=== PATIENT | female | born 1980 | race Caucasian/White ===

== ENCOUNTER 2017-08-24 01:04 | Emergency (ER) | END 2017-08-24 06:43 | disposition home or self-care (01) ==

== ENCOUNTER 2018-05-05 19:56 | Emergency (ER) | END 2018-05-05 21:40 | disposition home or self-care (01) ==

== ENCOUNTER 2018-08-19 15:37 | Emergency (ER) | payer OTHER ==
[~2018-08-19] VITALS: Ht 167.6 cm; Wt 68.9 kg
[~2018-08-19 15:37] MED LIST: ACET-2047 PO; ACET500C5 PO; BENZ-6 PO; CLIN300C10 PO; D-ME473S2 PO; IBUP-1542 PO; SODI104S2 NASAL
[2018-08-19 15:45] VITALS: BP 108/59; PULSE 81; RESP 20; Ht 167.6 cm; Wt 68.9 kg
[2018-08-19] MEDS ORDERED: AZIT250T PO (16:05)
[2018-08-19] MEDS ORDERED: IBUP-1561 PO (16:07)
--- NOTE | 2018-08-19 16:13 | ERD ---
ER Documentation Chief Complaint Chief Complaint Complains of a sore throat x 2 days HPI 38-year-old female presents with history sore throat since Monday. States that it hurts to swallow and talk. States she has been having fevers and mild cough. Denies trismus, drooling. Has been taking Tylenol pain. Past medical history of migraines. Allergic to penicillin. Denies medications. Hernia surgery. Denies drinking, smoking, drug use. ROS All systems reviewed and are negative except as per history of present illness. Medications Home Meds Active Scripts Ibuprofen* (Motrin*) 400 Mg Tab, 400 MG PO Q6H PRN for PAIN AND OR ELEVATED TEMP, #30 TAB 0 Refills Prov:PAM VALDES 08/19/18 Azithromycin* (Zithromax*) 250 Mg Tablet, 250 MG PO DAILY for strep throat for 5 Days, #6 TAB 0 Refills Two tablets on day one followed by one tablet daily for next four days. Prov:PAM VALDES 08/19/18 Acetaminophen* (Acetaminophen*) 650 Mg Tablet, 650 MG PO Q6H PRN for PAIN AND OR ELEVATED TEMP, #30 TAB Prov:SINA SOLIS 05/05/18 Clindamycin Hcl* (Clindamycin Hcl*) 300 Mg Capsule, 300 MG PO TID for 10 Days, CAP Prov:SINA SOLIS 05/05/18 Sodium Chloride ([place]) 104 Ml [place], 1 SPRAY NASAL PRN PRN for NASAL CONGESTION, #1 BOTTLE Prov:MIMI LEROY PA-C 08/24/17 Dextromethorphan Hb-Promethazine Hcl* (Promethazine DM* Syrup) 473 Ml Syrup, 5 ML PO Q6 PRN for COUGH, #1 BOT Prov:MIMI LEROY PA-C 08/24/17 Benzonatate* (Tessalon [place]*) 100 Mg Capsule, 100 MG PO Q8H PRN for COUGH, #15 CAP Prov:MIMI LEROYC 08/24/17 Acetaminophen* (Tylophen*) 500 Mg Capsule, 1 CAP PO Q6H PRN for PAIN AND OR ELEVATED TEMP, #20 CAP Prov:MIMI LEROY PA-C 08/24/17 Ibuprofen* (Motrin*) 600 Mg Tab, 600 MG PO Q6, #30 TAB Prov:RADMIMI PA-C 08/24/17 Allergies Allergies: Coded Allergies: Penicillins (Verified Allergy, Unknown, 08/19/18) PMhx/Soc History of Surgery: Yes (Hernia repair) Anesthesia Reaction: No Hx Neurological Disorder: Yes (migraine) Hx Respiratory Disorders: No Hx Cardiac Disorders: No Hx Psychiatric Problems: No Hx Miscellaneous Medical Probl: No Hx Alcohol Use: No Hx Substance Use: No Hx Tobacco Use: No Smoking Status: Never smoker FmHx Family History: No diabetes, No coronary disease, No other Physical Exam Vitals Vital Signs Date Temp Pulse Resp B/P (MAP) Pulse Ox O2 O2 Flow FiO2 Time Delivery Rate 08/19/18 98.7 81 20 108/59 99 15:45 (75) Physical Exam General: Well developed, well nourished. No acute distress. Eyes: No icterus, lesions, injection, or edema. Ears: Auricles nontender, with no erythema, lesions, or masses bilaterally. TMs pearly aviles with + cone of light and no bulging or fluid lines bilaterally. Auditory canal patent with no discharge or impaction bilaterally. Landmarks appreciated bilaterally. Throat: Some tonsillar erythema noted bilaterally. No masses, lesions, or abscesses noted. Uvula midline. Airway patent. Mouth: Mucus membranes moist. No drooling, ulcers, bleeding, or lesions, noted. Neck: Anterior lymphadenopathy noted. Tracheal midline, no goiter or nodules noted. No JVD. Heart: RR w/o murmur, rubs, or gallops. Lungs: Clear to auscultation bilaterally w/o wheezes, crackles, rhonchi. Symmetric rise and fall. Equal breath sounds. Psych: Normal mood and affect. Procedures/MDM MDM: 38-year-old female presents with history sore throat since Monday. States that it hurts to swallow and talk. States she has been having fevers and mild cough. Denies trismus. Has been taking Tylenol pain. I have low suspicion for epiglottitis, peritonsilar abscess, ludwigs angina, retropharyngeal abscess, or other emergent etiologies based on patients exam and history. Patient has lymphadenopathy, no cough, erythematous tonsils, and fever, so decision was made to treat for strep. Patient given rx for ibuprofin for pain. Patient discharged with strict ER precautions. Patient advised to follow up with PMD. All questions answered at discharge. Departure Diagnosis: Primary Impression: Sore throat Condition: Stable Patient Instructions: Self-Care for Sore Throats Additional Instructions: FOLLOW UP WITH YOUR PRIMARY CARE PHYSICIAN TOMORROW.Return to this facility if you are not improving as expected. PAM VALDES Aug 19, 2018 16:13
== END 2018-08-19 16:28 | disposition home or self-care (01) ==
LOC: FTE 15:37
DX: J02.9 Acute pharyngitis, unspecified (principal)
CPT/HCPCS: 99283